=== PATIENT | female | born 1980 | race Caucasian/White ===

== ENCOUNTER → 2023-07-23 | Outpatient (CLI) | payer MEDICARE, MEDICAID, SELFPAY ==
--- NOTE | 2023-07-23 15:35 | RAD_ITS ---
STUDY: X-RAY - ABDOMEN/PELVIS REASON FOR EXAM: Female, 43 years old. KIDNEY STONES TECHNIQUE: Single AP view of the abdomen / pelvis. COMPARISON: None. FINDINGS: Normal visualized lung bases. There is an unremarkable bowel gas pattern. The visualized liver, spleen and kidneys are grossly normal in size and morphology. Normal soft tissue structures. Mild scoliosis. No radiodense urolithiasis. RAD/Abdomen Single View IMPRESSION: No radiodense urolithiasis Electronically Signed: Mauricio Virgen MD at 0:08 EST ,
== END | disposition home or self-care (01) ==
PROVIDERS: PCP Family Medicine; Referring Provider Urology; Visit Provider Urology
DX: N20.0 Calculus of kidney (principal)
CPT/HCPCS: 74018

== ENCOUNTER → 2024-07-21 | Outpatient (CLI) | payer MEDICARE, MEDICAID, SELFPAY ==
--- NOTE | 2024-07-21 12:49 | RAD_ITS ---
EXAM: XR ABDOMEN, 1 VIEW CLINICAL INDICATION: KUB- STONES TECHNIQUE: Frontal supine view of the abdomen/pelvis. COMPARISON: Abdominal radiographs of 07/23/2023. FINDINGS: LOWER THORAX: The visualized lower lungs demonstrate numerous calcified granulomas, unchanged. There is chronic blunting of both lateral costophrenic angles indicating bibasilar pleural thickening. No acute basilar pulmonary infiltrates are identified. GASTROINTESTINAL TRACT: Non-obstructive. No bowel or stomach distention. ORGANS: Kidneys are obscured by overlying bowel gas and stool. There is a stable 3.7 mm ovoid calcification projected over the right transverse process of L4, most likely due to vascular calcification rather than a ureteral stone in view of its long-term stability. No definite renal calculi are identified. No organomegaly. BONES/JOINTS: Stable minimal lumbar levoscoliosis. Multilevel lower thoracic degenerative disc disease again noted. Lower lumbar facet arthritis. Chronic sclerosis involving the left inferior pubic ramus laterally, and of the right sacral ala, consistent with old trauma. SOFT TISSUES: No acute pathology. RAD/Abdomen Single View IMPRESSION: No acute findings. No definite renal or ureteral stones are identified but visualization of the kidneys is limited due to overlying bowel gas and stool. Electronically Signed: Damir Garcia MD at 0:23 EST ,
== END | disposition home or self-care (01) ==
LOC: MTRAD 12:48
PROVIDERS: PCP Family Medicine; Referring Provider Urology; Visit Provider Urology
DX: N20.0 Calculus of kidney (principal)
CPT/HCPCS: 74018